=== PATIENT | female | born 1940 | race Caucasian/White ===

== ENCOUNTER 2018-08-27 05:47 | Day surgery (SDC) | payer OTHER ==
[~2018-08-27 05:47] MED LIST: LISINOPRIL1 GM PO; QUETIAPINE PO; ZOLOFT50 MG PO
[2018-08-27] MEDS ORDERED: PERCOCET 5-3251 EACH PO (11:47)
[2018-08-27] MEDS ORDERED: INTESTINEX680 M1 PO (11:48)
[2018-08-27] MEDS ORDERED: PEPCID20 MG PO (11:48)
[2018-08-27] MEDS ORDERED: DICY20TA PO (11:48)
[2018-08-27] MEDS ORDERED: ZOFRAN ODT4 MG PO (11:49)
== END 2018-08-27 15:50 | disposition home or self-care (01) ==
LOC: CIR.AMB 05:47
DX: K80.10 Calculus of gallbladder with chronic cholecystitis without obstruction (principal)

== ENCOUNTER 2018-09-04 16:02 | Emergency (ER) | payer OTHER ==
[~2018-09-04] VITALS: Ht 160 cm; Wt 65.8 kg
[~2018-09-04 16:02] MED LIST changes: +DICY20TA PO; +INTESTINEX680 M1 PO; +PEPCID20 MG PO; +PERCOCET 5-3251 EACH PO; +ZOFRAN ODT4 MG PO
[2018-09-04] MEDS ORDERED: SEROQUEL25 MG PO (16:12)
[2018-09-04] MEDS ORDERED: LORAZEPAM4 MG/1 M1 (16:13)
== END 2018-09-04 18:52 | disposition home or self-care (01) ==
LOC: ER 16:02
DX: K64.4 Residual hemorrhoidal skin tags (principal); K59.09 Other constipation

== ENCOUNTER 2018-10-04 19:26 | Inpatient (IN) | payer OTHER ==
[~2018-10-04] VITALS: Ht 160 cm; Wt 65.8 kg
[~2018-10-04 19:26] MED LIST changes: +LORAZEPAM4 MG/1 M1; +SEROQUEL25 MG PO
[2018-10-20] MEDS ORDERED: ULTRACET PO (12:51)
[2018-10-20] MEDS ORDERED: INTESTINEX680 M1 PO (12:52)
== END 2018-10-20 15:06 | disposition home or self-care (01) | DRG 330 ==
LOC: ER 19:26 → SURH 10-05 08:25 → SURG 10-05 08:25
PROVIDERS: Surgery; ADMIT Surgery
PROC: BW21ZZZ Computerized Tomography (CT Scan) of Abdomen and Pelvis (ICD-10-PCS; 2018-10-05)
PROC: BW41ZZZ Ultrasonography of Abdomen and Pelvis (ICD-10-PCS; 2018-10-09)
PROC: 02HV33Z Insertion of Infusion Device into Superior Vena Cava, Percutaneous Approach (ICD-10-PCS; 2018-10-09)
PROC: BF37ZZZ Magnetic Resonance Imaging (MRI) of Pancreas (ICD-10-PCS; 2018-10-10)
PROC: 0DNB0ZZ Release Ileum, Open Approach (ICD-10-PCS; 2018-10-15)
PROC: 0DQV0ZZ Repair Mesentery, Open Approach (ICD-10-PCS; 2018-10-15)
PROC: 0WJG4ZZ Inspection of Peritoneal Cavity, Percutaneous Endoscopic Approach (ICD-10-PCS; 2018-10-15)
PROC: 0DQB0ZZ Repair Ileum, Open Approach (ICD-10-PCS; principal; 2018-10-15 11:00)
DX: K56.51 Intestinal adhesions [bands], with partial obstruction (principal); J90 Pleural effusion, not elsewhere classified; K91.71 Accidental puncture and laceration of a digestive system organ or structure during a digestive system procedure; K52.89 Other specified noninfective gastroenteritis and colitis; E86.0 Dehydration; K64.4 Residual hemorrhoidal skin tags; K59.09 Other constipation; K21.9 Gastro-esophageal reflux disease without esophagitis; I10 Essential (primary) hypertension